=== PATIENT | female | born 1970 | race Caucasian/White ===

== ENCOUNTER 2016-11-21 12:51 | Emergency (ER) | payer MEDICARE, MEDICAID ==
[~2016-11-21] VITALS: Ht 175.3 cm; Wt 81.8 kg
[~2016-11-21 12:51] MED LIST: ALBU8.5H4 IH; HYDR1TAB69 PO; HYDR25TA4 PO; LISI20TA PO; TOP100 PO; ZOC20 PO; [UNRECOGNIZED DRUG - CODE] PO
[2016-11-21 12:53] VITALS: BP 148/92; PULSE 91; RESP 18; O2SAT 100
--- NOTE | 2016-11-21 13:16 | ED.REPORT ---
HPI-Rash / Abscess Date of Service Nov 21, 2016 ED Provider: History of Present Illness: 46-year-old female here for a painful lump under her left breast that has been there since last night. It is not grown or changed since last night. No erythema or discharge noted, this lump is deep under the surface. Last menstrual period was at the end of October she does have regular periods. She does have lumpy breast that usually does not get tenderness related to her menstrual cycle. She does not have fever and otherwise does feel well. She had a mammogram a year and 4 months ago at [facility] and this was normal. Mom has a history of breast cancer. She is a smoker. Nursing Notes Stated Complaint: LUMP ON LT BREAST Chief Complaint: General Complaint Nursing Notes Reviewed: Yes Allergies: Coded Allergies: Penicillins (Verified Allergy, Severe, PCN = HIVES, 04/03/12) Uncoded Allergies: Penicillin (Allergy, Severe, PCN = HIVES, 11/23/03) Scheduled Clindamycin (Clindamycin) 150 Mg Capsule 450 MG PO TID Hydrochlorothiazide-Expunged, Do Not Renew! (Hydrochlorothiazide-Expunged, Do Not Renew!) 25 Mg Tablet 25 MG PO DAILY Hydrocod/APAP-Expunged, Do Not Renew! (VICODIN 5/500-Expunged Drug, Do Not Renew ) 1 Each Tablet 1 EACH PO PRN Lisinopril-Expunged Drug, Do Not Renew! (Lisinopril-Expunged Drug, Do Not Renew! ) 20 Mg Tablet 20 MG PO DAILY Metoprolol Suc-Expunged Drug, Do Not Renew! (Metoprolol Suc-Expunged Drug, Do Not Renew!) 100 Mg Tab.sr.24h 100 MG PO DAILY Simvastatin-Expunged Drug, Choose New Med! (Simvastatin-Expunged Drug, Choose New Med!) 20 Mg Tablet 20 MG PO HS Scheduled PRN Albuterol-Expunged Drug, Do Not Renew! (Albuterol-Expunged Drug, Do Not Renew!) 8.5 Gm Hfa.aer.ad 1-2 PUFFS IH Q4-6H PRN PRN Lorazepam-Expunged Drug, Do Not Renew! (Lorazepam-Expunged Drug, Do Not Renew!) 2 Mg Tab 2 MG PO BID PRN PRN General Time Seen by : 13:02 Chief Complaint Sore, Tender/swollen area Hx Obtained From: Patient Arrived By: Walk-in Onset Occurred: 1 day ago Symptom Duration: Constant Location: : Other (breast) Severity: Current: Moderate Severity: Maximum: Moderate Associated with: Denies Fever Recent Healthcare: No recent doctor visit Similar Sx Previous: No Past Medical History Past Medical History Notes: HTN, smoker Review of Systems Review of Systems Note: L breast pain at 6 oclock Constitutional: Denies: Chills, Fatigue, Fever Cardiovascular: Denies: Chest pain GI: Denies: Abdominal pain, Nausea, Vomiting Complete sys rev & neg: except as marked. Physical Exam Initial Vital Signs Vital Signs (First) Date Time Temp Pulse Resp B/P Pulse Ox O2 Delivery O2 Flow Rate FiO2 11/21/16 12:53 36.1 91 18 148/92 100 11/21/16 16:05 Room Air Initial VS: Reviewed, Vital signs normal Head / Eyes: Atraumatic, Normocephalic, PERRL Respiratory: Breath sounds normal, Clear to auscultation, No respiratory distress Cardiovascular: Regular rate & rhythm, Heart sounds normal, Intact distal pulses Abdomen / GI: Soft, Non-tender, No guarding, No rebound, No distention Neurologic: Alert, Oriented, Nonfocal Psychiatric: Mood/affect normal, Behavior normal, Normal thought content General/Constitutional: Awake, Alert, Well appearing Skin: Color NL, No rash, Warm, Dry, Intact, Turgor NL, No swelling Respiratory / Chest: Breath sounds NL, Breath sounds = bilat, No respiratory distress, No rales, No rhonchi, No wheezing Cardiovascular: Heart rate NL, Regular rhythm, Heart sounds NL, Peripheral circulation NL breast lumpy and cystic throughout bilaterally. Area pain is at 6:00 on the left breast. There is a slightly larger lump in this area than the rest of the breast, about the size of a nickel, and it is exquisitely tender. No superficial abnormalities like erythema or signs of abscess. 1+ axillary lymphadenopathy Interpretation & Diagnostics US Soft Tissue/Musculoskeletal PROCEDURE: US BREAST LIMITED SONOGRAM, LEFT INDICATIONS: painful lump TECHNIQUE: Real-time focused scanning was performed of the left breast with image documentation. COMPARISON: None. FINDINGS: Ultrasound evaluation at the 6:00 position of the left breast approximately 8 cm from the nipple in the area of tenderness and palpable abnormality demonstrates a small ovoid hypoechoic cyst measuring 0.8 x 0.5 x 0.7 cm with slightly indistinct margins. There is posterior acoustic enhancement. No internal vascularity on color Doppler interrogation. There is suggestion of a few internal echoes. IMPRESSION: 1. Hypoechoic cyst demonstrated in the area palpable abnormality and tenderness with slightly indistinct margins and a few internal echoes suggesting infection of a cyst. No definite abscess. Recommend short-term followup in 3-6 months to demonstrate stability or if clinically indicated ultrasound guided fine needle aspiration may be performed. BIRADS 3: Probably benign. Re-Eval/Medical Decision Med Decision/Clinical Course Ultrasound shows probable infected cyst of left breast. Will place on Bactrim and have her follow up with her PCP for further care discussed reimaging recommendations as well. Discharge & Departure Shift Change Sign-Out Imaging Studies: Imaging discussed Procedures: Results discussed Impression: Primary Impression: Cyst, breast Laterality: left Qualified Code: N60.02 - Solitary cyst of left breast Disposition: Home Discharge Condition All VS Reviewed: Yes Condition: Stable Patient Instructions: Abscess (ED) Additional Instructions: Use ibuprofen and Tylenol as needed for pain. Try applying a hot pack to this cyst 3 times a day. Take and buttocks as directed. Follow-up with your PCP in 2 days for recheck. Return to ER if cyst is growing, become more painful or swollen despite antibiotic use. you will need a follow-up ultrasound in 3-6 months as well. Referrals: Billie Lizama MD (PCP) EDSupervising Provider for APC: Yung Mann MD copies to: Billie Lizama MD, Linnea K QU[employer] E[employer]IPMENT OPERATOR Nov 21, 2016 13:16
--- NOTE | 2016-11-21 15:38 | DRSVH ---
PROCEDURE: US BREAST LIMITED SONOGRAM, LEFT INDICATIONS: painful lump TECHNIQUE: Real-time focused scanning was performed of the left breast with image documentation. COMPARISON: None. FINDINGS: Ultrasound evaluation at the 6:00 position of the left breast approximately 8 cm from the nipple in t he area of tenderness and palpable abnormality demonstrates a small ovoid hypoechoic cyst measuring 0 .8 x 0.5 x 0.7 cm with slightly indistinct margins. There is posterior acoustic enhancement. No int ernal vascularity on color Doppler interrogation. There is suggestion of a few internal echoes. IMPRESSION: 1. Hypoechoic cyst demonstrated in the area palpable abnormality and tenderness with slightly indist inct margins and a few internal echoes suggesting infection of a cyst. No definite abscess. Recomme nd short-term followup in 3-6 months to demonstrate stability or if clinically indicated ultrasound g uided fine needle aspiration may be performed. BIRADS 3: Probably benign. Dictated by: Johny Jara M.D. on 11/21/2016 at 15:34 Approved by: Johny Jara M.D. on 11/21/2016 at 15:37
[2016-11-21] MEDS ORDERED: CLIN-77 PO (15:57)
[2016-11-21 16:05] VITALS: BP 132/84; PULSE 86; RESP 18; O2SAT 100
== END 2016-11-21 16:05 | disposition home or self-care (01) ==
LOC: SED 12:51
DX: N60.02 Solitary cyst of left breast (principal); I10 Essential (primary) hypertension; F17.200 Nicotine dependence, unspecified, uncomplicated; Z88.0 Allergy status to penicillin
CPT/HCPCS: 76642; 96372; 99284; J1885